=== PATIENT | female | born 2000 | race Caucasian/White ===

== ENCOUNTER 2021-01-10 16:28 | Emergency (ER) | payer SELFPAY ==
[2021-01-10 16:41] VITALS: BP 111/73; PULSE 85; RESP 18; TEMP 36.9; O2SAT 94; BMI 21.9
--- NOTE | 2021-01-10 17:08 | ED_ITS ---
HPI - Psych General: Chief Complaint: Psychiatric Symptoms Stated Complaint: SI Time Seen by Provider: 01/10/21 16:41 History of Present Illness: HPI Narrative: This patient presents to emergency department because she is concerned about how she has been feeling over the past months. She states that she feels like she can get her head together. She states that time she feels anxious at the other times she feels depressed. Occasionally she has fleeting thoughts of harming herself however she has no specific plan to do so. She currently lives with her mother and stepfather. She has plans on starting [employer] in January. She is currently taking Prozac that is been prescribed by a nurse practitioner. She initially started at 20 mg daily and is now taking 40 mg daily. She does not feel that she has had much improvement with that medication. She states she smokes marijuana from time to time to help with her anxiety. Rarely drinks alcohol and denies any other street drugs. She states she had issues with depression in her early teens but she attributes that to the middle and [employer] environment. MD complaint: feels depressed Associated symptoms: Reports depression; Deny auditory hallucinations, visual hallucinations, delusions or homicidal ideation Review of Systems Const: Denies: fever(s), chills or body aches Eyes: Denies: change in vision ENMT: Reports: nasal congestion and post nasal drip; Denies: odynophagia, hoarseness or sinus pain Card: Denies: chest pain, palpitations or irregular heart rhythm Resp: Denies: dyspnea or productive cough GI: Denies: abdominal pain, nausea or vomiting : Denies: flank pain, difficulty voiding, dysuria, vaginal bleeding or vaginal discharge Musc: Denies: neck pain, back pain or joint pain Skin/Breast: Denies: rash Neuro: Denies: headache(s), numbness in extremities or weakness in extremities Psych: Reports: anxiety and depression; Denies: paranoia, difficulty concentrating, visual hallucinations, auditory hallucinations, tactile hallucinations or homicidal ideation Physical Exam Narrative: EXAM NARRATIVE: She generally looks healthy, normal development. She makes good eye contact. Speech is of low volume but she is appropriately expressive Const: COMMON NORMALS: no acute distress and patient oriented x3 HENMT: COMMON NORMALS: normocephalic and Normal external nose present HEAD & SCALP: normocephalic FACE & SINUS: normal facial exam; sinuses not nontender NOSE: Normal external nose present MOUTH: Normal ora l and palatal mucosa present Eye: COMMON NORMALS: Equal, round and reactive pupils present and no scleral icterus PUPIL: Yes Equal, round and reactive pupils present Neck/C-Spine: COMMON NORMALS: full ROM and no lymphadenopathy Chest: CHEST: No tenderness Resp: COMMON NORMALS: normal respiratory effort, No retractions, No use of accessory muscles and clear to auscultation bilaterally AUSCULTATION: clear to auscultation bilaterally Cardio: COMMON NORMALS: regular rhythm and No murmurs present (Cardio) RHYTHM: regular rhythm GI: COMMON NORMALS: Normal to inspection, nondistended, normoactive bowel sounds present, Soft to palpation and non-tender PALPATION: Yes Soft to palpation : COMMON NORMALS: Yes no CVA tenderness BLADDER/KIDNEY EXAM: Yes no CVA tenderness Back/Pelvis: COMMON NORMALS: no CVA tenderness, thoracic and lumbar spine normal to inspection and thoraco-lumbar ROM normal Extremity: COMMON NORMALS: normal to inspection and full ROM Neuro: COMMON NORMALS: patient oriented x3, moves all extremities, no focal motor deficits, no sensory deficits noted and gait normal Psych: COMMON NORMALS: mental status grossly normal, Normal thought process present, cooperative and speech normal APPEARANCE: Yes grossly normal ATTITUDE: Yes calm SPEECH: Yes normal speech and Yes soft MOOD & AFFECT: No tearful THOUGHT PROCESS: Normal thought process present THOUGHT CONTENT: No Homicidality present, No delusions and No Hallucination(s) present ATTENTION/CONCENTRATION: Yes attention grossly intact Course Reevaluation(s): Reevaluation #1: I discussed case briefly with Dr. Hope attending psychiatrist. He was perfectly comfortable with offering her an obvious admission to ensure that she got plugged into mental health care. I discussed options with the patient and she is going to discuss with her mother regarding her input. The patient's very goal-directed and I feel at really relatively low risk for self-harm at this time. Reevaluation #2: Patient has spoken with her mother. She is decided she will go home with family and contact behavioral health in the morning. Again we had a long discussion regarding the need to follow through with contact behavioral [facility] and that if she has any pervasive or worsening symptoms of self-harm she should return to the emergency department immediately. We also advised her to continue her Prozac until she gets contact with behavioral health. She has intact decision-making capacity. She is forthright with all her discussion and at this time judged to be at low risk for self-harm. Vital Signs: Vital signs: Vital Signs Temperature 98.4 F 01/10/21 16:41 Pulse Rate 85 01/10/21 16:41 Respiratory Rate 18 01/10/21 16:41 Blood Pressure 111/73 01/10/21 16:41 Pulse Oximetry 94 01/10/21 16:41 MDM - Psych Lab Data: Labs: Lab Results 01/10/21 01/10/21 01/10/21 16:59 16:59 17:23 WBC 7.7 10^3/uL 10^3/ uL (4.5-13.0) RBC 5.07 10^6/uL 10^6 /uL (4.1-5.3) Hgb 13.9 g/dL g/dL (11.5-15.3) Hct 42.3 % % (37.0-47.0) MCV 83.4 fl fl (81-99) MCH 27.4 pg L pg (28.0-34.0) MCHC 32.9 g/dL g/dL (30.0-36.0) RDW 14.2 % % (12.1-15.1) Plt Count 347 10^3/cmm 10^3 /cmm (130-400) MPV 10.4 fL fL (7.4-10.4) Neut % (Auto) 68.1 % % Lymph % (Auto) 23.7 % % [place] % (Auto) 5.6 % % Eos % (Auto) 1.7 % % Baso % (Auto) 0.6 % % Neut # (Auto) 5.25 10^3/uL 10^3 /uL (1.8-8.0) Lymph # (Auto) 1.8 10^3/uL 10^3/ uL (1.5-6.5) [place] # (Auto) 0.4 10^3/uL 10^3/ uL (0.2-0.9) Eos # (Auto) 0.1 10^3/uL 10^3/ uL (0.0-0.8) Baso # (Auto) 0.1 10^3/uL 10^3/ uL (0.0-0.1) Nucleated RBC % (a uto) 0 % % Nucleated RBCs # 0.0 /100WBC /100W BC Sodium 138 mmol/L mmol/L (136-145) Potassium 4.0 mmol/L mmol/L (3.5-5.1) Chloride 104 mmol/L mmol/L (98-107) Carbon Dioxide 21 mmol/L L mmol/ L (22-29) Anion Gap 17.0 (5-19) BUN 6 mg/dL mg/dL (6-20) Creatinine 0.5 mg/dL mg/dL (0.5-0.9) GFR Calculation 157.3 mL/min H mL /min (90-130) Glucose 72 mg/dL mg/dL (65-115) Calculated Osmolal ity 282 mOsm/kg L mOs m/kg (285-295) Calcium 9.1 mg/dL mg/dL (8.5-10.5) Total Bilirubin 0.3 mg/dL mg/dL (0.15-1.2) AST 13 U/L U/L (0-32) ALT 8 U/L U/L (0-33) Alkaline Phosphata se 70 IU/L IU/L (35-105) Total Protein 6.5 g/dL L g/dL (6.6-8.7) Albumin 4.4 g/dL g/dL (3.5-5.2) Globulin 2.1 g/dL g/dL (1.3-4.6) HCG, Qual Negative (Negative) Salicylates < 0.3 mg/dL L mg/ dL (3-10) Urine Opiates Scre en Acetaminophen < 5.0 ug/mL L ug/ mL (10-30) Ur Barbiturates Sc reen Ur Phencyclidine S crn Ur Amphetamines Sc reen U Benzodiazepines Scrn Urine Cocaine Scre en U Marijuana (THC) Screen Ethyl Alcohol < 10 mg/dL mg/dL (0-10) 01/10/21 17:23 WBC RBC Hgb Hct MCV MCH MCHC RDW Plt Count MPV Neut % (Auto) Lymph % (Auto) [place] % (Auto) Eos % (Auto) Baso % (Auto) Neut # (Auto) Lymph # (Auto) [place] # (Auto) Eos # (Auto) Baso # (Auto) Nucleated RBC % (a uto) Nucleated RBCs # Sodium Potassium Chloride Carbon Dioxide Anion Gap BUN Creatinine GFR Calculation Glucose Calculated Osmolal ity Calcium Total Bilirubin AST ALT Alkaline Phosphata se Total Protein Albumin Globulin HCG, Qual Salicylates Urine Opiates Scre en Negative ng/mL ng /mL (Negative) Acetaminophen Ur Barbiturates Sc reen Negative ng/mL ng /mL (Negative) Ur Phencyclidine S crn Negative ng/mL ng /mL (Negative) Ur Amphetamines Sc reen Negative ng/mL ng /mL (Negative) U Benzodiazepines Scrn Negative ng/mL ng /mL (Negative) Urine Cocaine Scre en Negative ng/mL ng /mL (Negative) U Marijuana (THC) Screen Positive ng/mL H ng/mL (Negative) Ethyl Alcohol Discharge Plan Discharge Condition: Stable Discharge Orders: Discharge ED (Routine); Ordered 01/10/21 Ordered By: Deacon Felder Discharge Diet: Usual diet Discharge Activity: Resume usual activity Patient Instructions: Depression (ED) Activity Restrictions/Additional Instructions: Continue your Prozac. Call [phone] first thing in the morning to do discuss your needs with the [facility]. If your symptoms worsen you may call 911 or call Coding Level of Care Code ED Ski Patrol Officer for [facility]o Urena Exam Comprehensive
[2021-01-10 17:19] LABS: Basophils # 0.1 10^3/uL (0.0-0.1); Basophils % 0.6 %; Eosinophils # 0.1 10^3/uL (0.0-0.8); Eosinophils % 1.7 %; Hematocrit 42.3 % (37.0-47.0); Hemoglobin 13.9 g/dL (11.5-15.3); Lymphocytes # 1.8 10^3/uL (1.5-6.5); Lymphocytes % 23.7 %; Mean Corpuscular HGB Conc 32.9 g/dL (30.0-36.0); Mean Corpuscular Hemoglobin 27.4 pg (28.0-34.0); Mean Corpuscular Volume 83.4 fl (81-99); Mean Platelet Volume 10.4 fL (7.4-10.4); Monocytes # 0.4 10^3/uL (0.2-0.9); Monocytes % 5.6 %; Neutrophils # 5.25 10^3/uL (1.8-8.0); Neutrophils % 68.1 %; Nucleated Red Blood Cells % 0 %; Platelet Count 347 10^3/cmm (130-400); Red Blood Count 5.07 10^6/uL (4.1-5.3); Red Cell Distribution Width 14.2 % (12.1-15.1); White Blood Count 7.7 10^3/uL (4.5-13.0)
[2021-01-10 17:31] LABS: Alanine Aminotransferase 8 U/L (0-33); Albumin Level 4.4 g/dL (3.5-5.2); Alkaline Phosphatase 70 IU/L (35-105); Aspartate Amino Transferase 13 U/L (0-32); Blood Urea Nitrogen 6 mg/dL (6-20); Calcium 9.1 mg/dL (8.5-10.5); Carbon Dioxide 21 mmol/L (22-29); Chloride 104 mmol/L (98-107); Globulin 2.1 g/dL (1.3-4.6); Glomerular Filtration Rate 157.3 mL/min (90-130); Glucose 72 mg/dL (65-115); Osmolality Calculated 282 mOsm/kg (285-295); Sodium 138 mmol/L (136-145); Total Bilirubin 0.3 mg/dL (0.15-1.2); Total Protein 6.5 g/dL (6.6-8.7)
[2021-01-10 17:36] LABS: Acetaminophen < 5.0 ug/mL (10-30); Alcohol Level < 10 mg/dL (0-10); Salicylate < 0.3 mg/dL (3-10)
[2021-01-10 17:37] LABS: HCG Qualitative Urine. Negative (Negative)
[2021-01-10 17:44] LABS: Amphetamines Screen Urine Negative (Negative); Barbiturates Screen Urine Negative (Negative); Benzodiazepines Screen Urine Negative (Negative); Cocaine Screen Urine Negative (Negative); Opiate Screen Urine Negative (Negative); PCP Screen Urine Negative (Negative); THC Screen Urine Positive (Negative)
[2021-01-10 19:34] VITALS: RESP 16
== END 2021-01-10 19:35 | disposition home or self-care (01) ==
PROVIDERS: Emergency Provider Emergency Medicine
DX: R45.851 Suicidal ideations (principal)
CPT/HCPCS: 80053; 80306; 80307; 81025; 85025; 99283

== ENCOUNTER → 2022-01-09 10:18 | Outpatient (BNVA) | payer SELFPAY | PROVIDERS: Visit Provider Nurse Practitioner Women's Health | DX: N92.6 Irregular menstruation, unspecified (principal) | CPT/HCPCS: 81025 ==

== ENCOUNTER 2022-02-06 16:08 | Inpatient (IN) | payer SELFPAY ==
[2022-02-06 16:11] VITALS: BP 121/79; PULSE 99; RESP 16; TEMP 36.6; O2SAT 100; BMI 21.4
--- NOTE | 2022-02-06 16:34 | W.ED.PSYCHS ---
HPI - Psych General: Chief Complaint: Psychiatric Symptoms Stated Complaint: mental issues Time Seen by Provider: 02/06/22 16:34 History of Present Illness: Ms. Kinney is a 21-year-old female with history of depression, anxiety, borderline personality disorder presenting to the emergency department for worsening psychiatric symptoms. Has felt more depressed and at times as felt like she would be better off . Reports trouble with feeling like a lack of social support. Currently approximately 7 weeks . Stopped taking her duloxetine and trazodone when she found out she became as well as stopping smoking and smoking marijuana. Medically she does report some nonpainful vaginal discharge which feels like yeast infection to her. No urinary difficulty or pain with urination. Otherwise denies signs systemic illness. Course of psychiatric symptoms symptoms is worsened. No other specific changes in health, exacerbating, or alleviating factors identified. Onset (ago): week(s) Duration: getting worse Context: not taking psychiatric medications and significant life stressor Review of Systems General: Reports: 10 or more systems reviewed and unremarkable except in HPI and below PFSH ED PFSH: Medical History Borderline personality disorder Generalized anxiety disorder Moderate episode of recurrent major depressive disorder No pertinent past medical history neghx: htn,dm,thyroid,dvt/pe PCP: [facility] CON[facility]ULTING [facility]ME Psychiatric care Social phobia Surgical History History of tonsillectomy and adenoidectomy (~2010) History of wisdom tooth extraction (~2014) Family History Grandfather Diabetes paternal Hypertension Stroke maternal Denies family history of Colon cancer Ovarian cancer Hyperlipidemia Breast cancer Family history of thyroid problem Uterine cancer Social History Smoking and tobacco status: former smoker (vape - quit 01/07/22) Quit status (tobacco): has quit using tobacco Year quit tobacco: 12/2021 Second hand smoke exposure: No Smoking risk assessment/counseling performed?: No Alcohol intake: former Year of sobriety/quit date alcohol: 2021 Desire information about alcohol rehabilitation?: No Counseling given: No Desire information about substance/drug rehabilitation?: No Counseling given: No Physical Exam Const: COMMON NORMALS: alert GENERAL APPEARANCE: cooperative and well developed HENMT: COMMON NORMALS: normocephalic and atraumatic HEAD & SCALP: normocephalic and atraumatic Eye: COMMON NORMALS: conjunctivae normal CONJUNCTIVA: Yes conjunctivae normal SCLERA: sclerae normal Neck/C-Spine: COMMON NORMALS: supple GENERAL: Yes trachea midline Resp: COMMON NORMALS: clear to auscultation bilaterally EFFORT & INSPECTION: Yes able to speak in complete sentences AUSCULTATION: clear to auscultation bilaterally Cardio: COMMON NORMALS: regular rate and regular rhythm RATE: regular rate RHYTHM: regular rhythm GI: COMMON NORMALS: Soft to palpation PALPATION: Yes Soft to palpation and No Tenderness to palpation present (GI) Extremity: GENERAL: Yes normal exam except as noted and No edema Neuro: COMMON NORMALS: moves all extremities SENSORIUM/ORIENTATION: Yes alert and No Orientation impaired Psych: COMMON NORMALS: mental status grossly normal and Normal thought process present MOOD & AFFECT: Yes depressed mood THOUGHT PROCESS: Normal thought process present Course Vital Signs: Vital signs: Vital Signs Temperature 98.7 F 02/09/22 06:00 Pulse Rate 93 02/09/22 16:18 Respiratory Rate 18 02/09/22 16:18 Blood Pressure 110/67 02/09/22 16:18 Pulse Oximetry 97 02/09/22 16:18 Oxygen Delivery Me thod 02/09/22 06:00 MDM - Psych Medical Decision Making 21-year-old female presenting with worsening depression and suicidal ideation in the context of not taking psychiatric medications around discovery of . Laboratory studies reviewed. Patient to be treated for yeast infection and UTI. Based on ED evaluation at this point there is no obvious condition that would preclude the patient from inpatient management of psychiatric concerns. The results of ED evaluation were discussed with the patient including plan for admission due to requirement for level of care not available if discharged to prevent significant worsening/deterioration. Patient agreeable with plan. Discussed with psychiatry service who was agreeable to admit patient to the Neuropsych Unit. Medical Records I reviewed the patient's medical records. Lab Data I reviewed the patient's lab results. 02/06/22 17:30 02/06/22 17:30 Laboratory Results WBC 7.0 10^3/uL (4.0-10.0) 02/06/22 17:30 RBC 4.34 10^6/uL (4.1-5.3) 02/06/22 17: Hgb 12.9 g/dL (11.5-15.3) 02/06/22 17: Hct 38.6 % (37.0-47.0) 02/06/22 17: MCV 88.9 fl (81-99) 02/06/22 17: MCH 29.7 pg (28.0-34.0) 02/06/22 17: MCHC 33.4 g/dL (30.0-36.0) 02/06/22: RDW 13.0 % (12.1-15.1) 02/06/22: Plt Count 295 10^3/cmm (130-400) 02/06/22: MPV 10.0 fL (7.4-10.4) 02/06/22 17: Neut % (Auto) 72.8 % 02/06/22: Lymph % (Auto) 20.3 % 02/06/22 17:30 [place] % (Auto) 5.3 % 02/06/22 17:30 Eos % (Auto) 1.0 % 02/06/22: Baso % (Auto) 0.3 % 02/06/22: Neut # (Auto) 5.07 10^3/uL (1.8-7.7) 02/06/22: Lymph # (Auto) 1.4 10^3/uL (0.8-4.8) 02/06/22: [place] # (Auto) 0.4 10^3/uL (0.2-0.9) 02/06/22 17:30 Eos # (Auto) 0.1 10^3/uL (0.0-0.8) 02/06/22: Baso # (Auto) 0.0 10^3/uL (0.0-0.1) 02/06/22: Nucleated RBC % (auto) 0 % 02/06/22: Nucleated RBCs # 0.0 /100WBC 02/06/22 17: Sodium 134 mmol/L (136-145) L 02/06/22 17: Potassium 4.1 mmol/L (3.5-5.1) 02/06/22 17:30 Chloride 99 mmol/L (98-107) 02/06/22 17:30 Carbon Dioxide 24 mmol/L (22-29) 02/06/22 17:30 Anion Gap 15.1 (5-19) 02/06/22 17:30 BUN 7 mg/dL (6-20) 02/06/22 17:30 Creatinine 0.4 mg/dL (0.5-0.9) L 02/06/22 17:30 GFR Calculation 201.5 mL/min (90-130) H 02/06/22 17:30 Glucose 91 mg/dL (65-115) 02/06/22 17:30 Calculated Osmolality 276 mOsm/kg (285-295) L 02/06/22 17:30 Calcium 9.4 mg/dL (8.5-10.5) 02/06/22 17:30 Total Bilirubin 0.2 mg/dL (0.15-1.2) 02/06/22 17:30 AST 22 U/L (0-32) 02/06/22 17:30 ALT 20 U/L (0-33) 02/06/22 17:30 Alkaline Phosphatase 41 U/L (35-105) 02/06/22 17:30 Total Protein 6.5 g/dL (6.6-8.7) L 02/06/22 17:30 Albumin 4.2 g/dL (3.5-5.2) 02/06/22 17:30 Globulin 2.3 g/dL (1.3-4.6) 02/06/22 17:30 TSH 1.28 uIU/mL (0.27-4.20) 02/06/22 17:30 HCG, Qual Positive (Negative) H 02/06/22 16: Urine Color Yellow (Yellow) 02/06/22: Urine Appearance Sl hazy (CLEAR) A 02/06/22: Urine pH 5 (5-7) 02/06/22 16: Ur Specific [place] 1.020 (1.005-1.030) 02/06/22 16:22 Urine Protein Neg (Negative) 02/06/22: Urine Glucose (UA) Norm (Normal) 02/06/22 16:22 Urine Ketones Negative (Negative) 02/06/22 16:22 Urine Blood Neg (Negative) 02/06/22 16:22 Urine Nitrate Negative (Negative) 02/06/22 16:22 Urine Bilirubin Neg (Negative) 02/06/22 16:22 Urine Urobilinogen Norm mg/dL (Negative) 02/06/22 16:22 Ur Leukocyte Esterase 2+ (Negative) H 02/06/22 16:22 Urine RBC 0-4 /hpf (0-2) H 02/06/22 16:22 Urine WBC >100 /hpf (0-5) H 02/06/22 16:22 Ur Squamous Epith Cells 25-40 /hpf (0-5) H 02/06/22 16:22 Amorphous Sediment Not Reportable 02/06/22 16:22 Urine Bacteria 4+ /hpf (NONE) H 02/06/22 16:22 Urine Mucus 2+ /hpf 02/06/22 16:22 Salicylates < 0.3 mg/dL (3-10) L 02/06/22 17:30 Urine Opiates Screen Negative ng/mL (Negative) 02/06/22 16:22 Acetaminophen < 5.0 ug/mL (10-30) L 02/06/22 17:30 Ur Barbiturates Screen Negative ng/mL (Negative) 02/06/22 16:22 Ur Phencyclidine Scrn Negative ng/mL (Negative) 02/06/22 16:22 Ur Amphetamines Screen Negative ng/mL (Negative) 02/06/22 16:22 U Benzodiazepines Scrn Negative ng/mL (Negative) 02/06/22 16:22 Urine Cocaine Screen Negative ng/mL (Negative) 02/06/22 16:22 U Marijuana (THC) Screen Positive ng/mL (Negative) H 02/06/22 16:22 Ethyl Alcohol < 10 mg/dL (0-10) 02/06/22 17:30 Discharge Plan Discharge Patient Disposition: Admitted As Inpatient Admit Provider: Epi Hope Clinical Impression: Depression, Chronic schizophrenia, Vaginal yeast infection, UTI (urinary tract infection) Condition: Stable Discharge Diet: Regular Discharge Activity: Resume usual activity Coding Level of Care Code ED Clinical Operations Leader for [facility] Urena
[2022-02-06 16:50] LABS: HCG Qualitative Urine. Positive (Negative)
--- NOTE | 2022-02-06 17:01 | ECG_ITS ---
[facility] Test Date: 2022-02-06 Pat Name: Fe Kinney Department: Room: Gender: Female [employer] Specialist: : [id number] Requested By: Efraín Weeks Order Number: [id number] [place] MD: Belle Padilla M.D. Measurements Intervals Reader Rate: 70 P: 35 ND: 113 QRS: 83 QRSD: 85 T: 53 QT: 376 QTc: 407 Interpretive Statements SINUS RHYTHM WITH SINUS ARRHYTHMIA WITH SHORT ND INTERVAL Compared to ECG 06/10/2015 20:03:03 Short ND interval now present Electronically Signed On 02-08-2022 15:16:36 PHARMACY SALES ASSISTANT by Belle Padilla M.D. [id number]
[2022-02-06 17:31] LABS: Amphetamines Screen Urine Negative (Negative); Barbiturates Screen Urine Negative (Negative); Benzodiazepines Screen Urine Negative (Negative); Cocaine Screen Urine Negative (Negative); Opiate Screen Urine Negative (Negative); PCP Screen Urine Negative (Negative); THC Screen Urine Positive (Negative)
[2022-02-06 17:40] LABS: Basophils % 0.3 %; Eosinophils # 0.1 10^3/uL (0.0-0.8); Hematocrit 38.6 % (37.0-47.0); Hemoglobin 12.9 g/dL (11.5-15.3); Lymphocytes # 1.4 10^3/uL (0.8-4.8); Lymphocytes % 20.3 %; Mean Corpuscular HGB Conc 33.4 g/dL (30.0-36.0); Mean Corpuscular Hemoglobin 29.7 pg (28.0-34.0); Mean Corpuscular Volume 88.9 fl (81-99); Monocytes # 0.4 10^3/uL (0.2-0.9); Monocytes % 5.3 %; Neutrophils # 5.07 10^3/uL (1.8-7.7); Neutrophils % 72.8 %; Nucleated Red Blood Cells % 0 %; Platelet Count 295 10^3/cmm (130-400); Red Blood Count 4.34 10^6/uL (4.1-5.3)
[2022-02-06 17:45] LABS: Urine Appearance SL Hazy (CLEAR); Urine Color Yellow (Yellow); pH Urine 5 (5-7)
[2022-02-06 17:46] LABS: Add Urine Microscopic? YES; Bilirubin Urine Neg (Negative); Blood Urine Neg (Negative); Glucose Urine UA Norm (Normal); Ketones Urine Negative (Negative); Leukocyte Esterase Urine 2+ (Negative); Nitrate Urine Negative (Negative); Protein Urine Neg (Negative); RBC Urine 0-4 /hpf (0-2); Squamous Epithelial Cell Urine 25-40 /hpf (0-5); Urobilinogen Urine Norm (Negative); WBC Urine >100 /hpf (0-5)
[2022-02-06 17:48] VITALS: BP 120/70; PULSE 66; O2SAT 100
[2022-02-06 17:48] LABS: Add Urine Culture? Yes; Bacteria Urine 4+ /hpf; Mucus Urine 2+ /hpf
[2022-02-06 18:21] LABS: Alanine Aminotransferase 20 U/L (0-33); Albumin Level 4.2 g/dL (3.5-5.2); Alkaline Phosphatase 41 U/L (35-105); Anion Gap 15.1 (5-19); Aspartate Amino Transferase 22 U/L (0-32); Blood Urea Nitrogen 7 mg/dL (6-20); Calcium 9.4 mg/dL (8.5-10.5); Carbon Dioxide 24 mmol/L (22-29); Chloride 99 mmol/L (98-107); Globulin 2.3 g/dL (1.3-4.6); Glomerular Filtration Rate 201.5 mL/min (90-130); Glucose 91 mg/dL (65-115); Osmolality Calculated 276 mOsm/kg (285-295); Potassium 4.1 mmol/L (3.5-5.1); Sodium 134 mmol/L (136-145); Thyroid Stimulating Hormone 1.28 uIU/mL (0.27-4.20); Total Bilirubin 0.2 mg/dL (0.15-1.2); Total Protein 6.5 g/dL (6.6-8.7)
[2022-02-06 18:27] LABS: Acetaminophen < 5.0 ug/mL (10-30); Alcohol Level < 10 mg/dL (0-10); Salicylate < 0.3 mg/dL (3-10)
[2022-02-06] MEDS: acetaminophen 500 mg Tablet 1000 MG PO (19:31)
[2022-02-06 20:00] VITALS: BP 122/68; PULSE 70; RESP 18; TEMP 36.6; O2SAT 100
--- NOTE | 2022-02-06 20:16 | PC.NURSE ---
Pt laying on her side in bed, PSA at bedside, and her parents are at bedside. Pt denies any questions or needs at this time - she is awaiting Dr. acharya to speak with her and come up with a plan.
[2022-02-06 20:36] VITALS: BP 122/68; PULSE 70; RESP 18; TEMP 36.6; O2SAT 100
[2022-02-06 22:00] VITALS: BP 120/73; PULSE 74; RESP 16; TEMP 36.6; O2SAT 100
[2022-02-07 06:00] VITALS: BP 119/83; PULSE 91; RESP 16; TEMP 36.6; O2SAT 98
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
[2022-02-07] MEDS: nitrofurantoin SR (BID) 100 mg Capsule PO ×2 (09:22→17:44)
[2022-02-07] MEDS: clotrimazole 1% cream 30 gm 1 APPLIC TOPICAL (09:22)
[2022-02-07 14:00] VITALS: BP 125/83; PULSE 85; RESP 16; TEMP 36.6; O2SAT 99
[2022-02-07] MEDS: citalopram 20 mg Tablet 10 MG PO (20:35)
[2022-02-07 20:42] VITALS: BP 107/75; PULSE 84; RESP 18; TEMP 36.6; O2SAT 99
[2022-02-08] MEDS: diphenhydrAMINE 25 mg Capsule PO ×2 (05:00→21:38)
[2022-02-08 06:00] VITALS: BP 114/79; PULSE 86; RESP 16; TEMP 36.4; O2SAT 100
--- NOTE | 2022-02-08 09:24 | P.NPUPN_ITS ---
Subjective NPU Subjective: Patient was in today reporting that she is not feeling very well. He reached out to the OB to identify what medication otherwise she denied that she feltwould be recommended for nausea and a female. Otherwise she denied that she felt the symptoms were related to initiating Celexa. She stayed in bed most of the morning. Mental Status Exam MSE Comments: This is a slender tall white female in hospital scrubs with adequate grooming and eye contact. No abnormal movements except for psychomotor retardation. Cooperative with exam in mild distress. Speech was decreased rate and volume. Mood described as feeling sick , affect congruent. Thought process organized. Thought content: Patient denied current suicidal or homicidal ideation, there were no delusions reported or noted, she denied any auditory or visual hallucinations. Attention and concentration were intact and memory appeared reliable but none were formally tested. She is alert and oriented x3. Insight and judgment are fair and impulse control is limited. Vitals/I&O/Wt Last Vital Signs Temp 97.6 F 02/08/22 06:00 Pulse 86 02/08/22 06:00 Resp 16 02/08/22 06:00 BP 114/79 02/08/22 06:00 Pulse Ox 100 02/08/22 06:00 O2 Del Method 02/07/22 14:00 Weight last 48 hrs Weight 62.051 kg Data NPU : 02/06/22 17:30 02/06/22 17:30 Micro: Microbiology 02/06/22 16:22 Urine Culture - Final Urine,Clean Catch Microbiology 02/06/22 16:22 Urine,Clean Catch Urine Culture - Final A&P Assessment and plan (1) Borderline personality disorder: (2) Moderate episode of recurrent major depressive disorder: (3) Generalized anxiety disorder: (4) Cannabis use disorder, moderate, dependence: (5) Vaginal yeast infection: (6) UTI (urinary tract infection): (7) Social phobia: Plan This is a 21-year-old white female with a long history of mental health and addiction issues as well as a history of trauma and treatment going back to her childhood who presents and off of her medication seeking advice on whether to restart medication and how to proceed with her mental health challenges during this . 1. Initiate Celexa 10 mg p.o. every morning. 2. Continue every 15 minute checks for safety. 3. Encourage individual, group and milieu therapy. 4. Assist in understanding how treatment changes during and support her with additional resources during this challenging time. 5. Identify appropriate medication for nausea in . Involuntary Hold Information 96 Hour Hold: 96 Hour Involuntary Admission: No Attestations NPU Medical Necessity Statement*: Inpatient hospitalization is medically necessary and the clinically appropriate intervention at this time. We will monitor/initiate medications and make changes as indicated. Likely length of stay 2-4 days. Coding Level of Care Code Acute Polyethylene Bag Machine Operator for [facility] Fwd Diagnoses Borderline personality disorder F60.3 Moderate episode of recurrent major depressive disorder F33.1 Generalized anxiety disorder F41.1 Cannabis use disorder, moderate, dependence F12.20 Vaginal yeast infection B37.31 UTI (urinary tract infection) N39.0 Social phobia F40.10
[2022-02-08] MEDS: citalopram 20 mg Tablet 10 MG PO (09:27)
[2022-02-08] MEDS: prenatal vitamin Capsule 1 CAP PO (09:27)
[2022-02-08] MEDS: clotrimazole 1% cream 30 gm 1 APPLIC TOPICAL (09:53)
[2022-02-08] MEDS: nitrofurantoin SR (BID) 100 mg Capsule PO ×2 (09:53→18:26)
[2022-02-08] MEDS: pyridoxine 50 mg Tablet 25 MG PO (11:02)
[2022-02-08 14:00] VITALS: BP 116/74; PULSE 72; RESP 18; TEMP 36.3; O2SAT 100
[2022-02-08] MEDS: ondansetron 4 MG Tablet 2 MG PO (14:45)
[2022-02-08 20:31] VITALS: BP 116/73; PULSE 74; RESP 18; TEMP 36.8; O2SAT 99
[2022-02-09 06:00] VITALS: BP 106/70; PULSE 91; RESP 18; TEMP 37.1; O2SAT 98; BMI 21.2
[2022-02-09] MEDS: prenatal vitamin Capsule 1 CAP PO (08:43)
[2022-02-09] MEDS: nitrofurantoin SR (BID) 100 mg Capsule PO (08:44)
[2022-02-09] MEDS: pyridoxine 50 mg Tablet 25 MG PO (08:44)
[2022-02-09] MEDS: citalopram 20 mg Tablet 10 MG PO (08:44)
--- NOTE | 2022-02-09 08:50 | PC.NURSE ---
shift assessment denies SI/HI/AVH currently...decreased energy, had to be woken up for assessment. pt refused breakfast tray at this time, asked for apple juice and yogurt which was provided by staff. when asked if she experiences any shortness of breath, pt stated yes sometimes but denies currently...asked if she uses inhalers at home, pt denied. will cont to monitor
--- NOTE | 2022-02-09 12:05 | PC.NURSE ---
contacted nurse from OB, asked for assistance in checking FHT...OB nurse Ponce, RN said they can't check for FHT with a doppler until patient is at least 12 weeks. right now patient is 7 weeks . will relay info to Dr. Hope
[2022-02-09 14:00] VITALS: BP 110/67; PULSE 93; RESP 18; O2SAT 97
[2022-02-09 16:18] VITALS: BP 110/67; PULSE 93; RESP 18; O2SAT 97
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
== END 2022-02-09 17:13 | disposition home or self-care (01) | DRG 832 ==
LOC: ER 19:47 → NP 20:09
PROVIDERS: Admitting Provider Psychiatry & Neurology Psychiatry; Emergency Provider Emergency Medicine; Visit Provider Psychiatry & Neurology Psychiatry
DX: O99.341 Other mental disorders complicating pregnancy, first trimester (principal); F33.1 Major depressive disorder, recurrent, moderate; N39.0 Urinary tract infection, site not specified; O23.41 Unspecified infection of urinary tract in pregnancy, first trimester; Z3A.01 Less than 8 weeks gestation of pregnancy; F40.11 Social phobia, generalized; F60.3 Borderline personality disorder; Z87.891 Personal history of nicotine dependence; Z91.14 Patient's other noncompliance with medication regimen
CPT/HCPCS: 36415; 80053; 80306; 80307; 81001; 81025; 84443; 85025; 87086; 87210; 93005; 97150; 97165; 99285; Q0162

== ENCOUNTER 2022-03-03 12:40 | Outpatient (CLI) | payer MEDICAID, SELFPAY ==
[2022-03-03 13:52] LABS: Basophils % 0.5 %; Eosinophils % 0.7 %; Hematocrit 43.6 % (37.0-47.0); Hemoglobin 13.3 g/dL (11.5-15.3); Lymphocytes # 1.4 10^3/uL (0.8-4.8); Lymphocytes % 23.5 %; Mean Corpuscular HGB Conc 30.5 g/dL (30.0-36.0); Mean Corpuscular Hemoglobin 30.2 pg (28.0-34.0); Mean Corpuscular Volume 99.1 fl (81-99); Mean Platelet Volume 10.4 fL (7.4-10.4); Monocytes # 0.3 10^3/uL (0.2-0.9); Monocytes % 4.6 %; Neutrophils # 4.17 10^3/uL (1.8-7.7); Neutrophils % 70.4 %; Nucleated Red Blood Cells % 0 %; Platelet Count 286 10^3/cmm (130-400); Red Cell Distribution Width 13.2 % (12.1-15.1); White Blood Count 5.9 10^3/uL (4.0-10.0)
[2022-03-03 14:24] LABS: HIV 1 & 2 Antigen Non-Reactive (Non-Reactiv)
[2022-03-03 14:25] LABS: HIV 1 & 2 Antibody Non-Reactive (Non-Reactiv)
[2022-03-03 14:27] LABS: Rubella IgG 19.4 IU/mL (0.0-10.0); Thyroid Stimulating Hormone 1.37 uIU/mL (0.27-4.20)
[2022-03-03 14:29] LABS: Rapid Plasma Reagin Syphilis Nonreactive (Nonreactive)
[2022-03-03 14:32] LABS: Hepatitis B Core AB, Total Non-Reactive (Nonreactive); Hepatitis B Surface AB 7.5 (11.5-1000); Hepatitis B Surface Antigen Non-Reactive (Nonreactive); Hepatitis C Virus Antibody Non-Reactive (Nonreactive)
== END 2022-03-03 12:41 | disposition home or self-care (01) ==
LOC: LAB 12:47
PROVIDERS: PCP Registered Nurse; Visit Provider Obstetrics & Gynecology
DX: Z34.90 Encounter for supervision of normal pregnancy, unspecified, unspecified trimester (principal)
CPT/HCPCS: 36415; 80307; 84315; 84443; 85025; 86592; 86705; 86706; 86762; 86803; 87086; 87340; 87806; 88175

== ENCOUNTER → 2022-03-14 09:40 | Outpatient (BNVA) | payer MEDICAID, SELFPAY | PROVIDERS: PCP Registered Nurse; Visit Provider Obstetrics & Gynecology | DX: Z34.00 Encounter for supervision of normal first pregnancy, unspecified trimester (principal); Z34.90 Encounter for supervision of normal pregnancy, unspecified, unspecified trimester; B37.31 Acute candidiasis of vulva and vagina | CPT/HCPCS: 87491; 87591; 87661 ==

== ENCOUNTER → 2022-04-08 12:20 | Outpatient (BNVA) | payer MEDICAID, SELFPAY | PROVIDERS: PCP Registered Nurse; Visit Provider Nurse Practitioner Women's Health | DX: Z34.00 Encounter for supervision of normal first pregnancy, unspecified trimester (principal); B37.31 Acute candidiasis of vulva and vagina | CPT/HCPCS: 81000; 82105; 82728; 83540; 85025; 86850; 86900 ==

== ENCOUNTER → 2022-05-12 09:43 | Outpatient (BNVA) | payer MEDICAID, SELFPAY | PROVIDERS: PCP Registered Nurse; Visit Provider Obstetrics & Gynecology | DX: Z34.00 Encounter for supervision of normal first pregnancy, unspecified trimester (principal); R82.90 Unspecified abnormal findings in urine | CPT/HCPCS: 81000; 87086 ==

== ENCOUNTER → 2022-07-02 10:40 | Outpatient (BNVA) | payer MEDICAID, SELFPAY | PROVIDERS: PCP Registered Nurse; Visit Provider Obstetrics & Gynecology | DX: Z34.00 Encounter for supervision of normal first pregnancy, unspecified trimester (principal) | CPT/HCPCS: 84315; 87086 ==

== ENCOUNTER 2022-07-03 10:49 | Outpatient (CLI) | payer MEDICAID, SELFPAY ==
[2022-07-03 12:22] LABS: Basophils % 0.4 %; Eosinophils # 0.1 10^3/uL (0.0-0.8); Eosinophils % 1.2 %; Hemoglobin 12.1 g/dL (11.5-15.3); Lymphocytes # 1.3 10^3/uL (0.8-4.8); Lymphocytes % 18.9 %; Mean Corpuscular HGB Conc 32.7 g/dL (30.0-36.0); Mean Corpuscular Hemoglobin 29.7 pg (28.0-34.0); Mean Corpuscular Volume 90.7 fl (81-99); Mean Platelet Volume 9.7 fL (7.4-10.4); Monocytes # 0.4 10^3/uL (0.2-0.9); Monocytes % 5.8 %; Neutrophils # 5.09 10^3/uL (1.8-7.7); Neutrophils % 73.3 %; Nucleated Red Blood Cells % 0 %; Platelet Count 227 10^3/cmm (130-400); Red Blood Count 4.08 10^6/uL (4.1-5.3); Red Cell Distribution Width 13.7 % (12.1-15.1); White Blood Count 6.9 10^3/uL (4.0-10.0)
[2022-07-03 12:44] LABS: Glucose Tolerance 1 Hour Gest 71 mg/dL
== END 2022-07-03 10:50 | disposition home or self-care (01) ==
LOC: LAB 10:53
PROVIDERS: PCP Registered Nurse; Visit Provider Obstetrics & Gynecology
DX: Z34.00 Encounter for supervision of normal first pregnancy, unspecified trimester (principal)
CPT/HCPCS: 36415; 82950; 85025

== ENCOUNTER 2022-07-07 23:20 | Outpatient (CLI) | payer MEDICAID, SELFPAY ==
[2022-07-07 23:34] VITALS: BMI 26.2
[2022-07-07 23:35] VITALS: RESP 15
[2022-07-07 23:40] VITALS: BP 115/76; PULSE 86
[2022-07-07 23:54] VITALS: BP 112/66; PULSE 83
[2022-07-08] VITALS (7 sets, daily range): BP systolic 107–114; BP diastolic 62–69; PULSE 67–86; RESP 18; TEMP 36.1
[2022-07-08 00:06] LABS: Nitrazine Paper, PH Negative
[2022-07-08 00:06] LABS: Amphetamines Screen Urine Negative (Negative); Barbiturates Screen Urine Negative (Negative); Benzodiazepines Screen Urine Negative (Negative); Cocaine Screen Urine Negative (Negative); Opiate Screen Urine Negative (Negative); PCP Screen Urine Negative (Negative); THC Screen Urine Negative (Negative)
--- NOTE | 2022-07-08 00:06 | USR_ITS ---
PROCEDURE INFORMATION: Exam: US Biophysical Profile Without Non-Stress Test Exam date and time: 07/08/2022 12:37 AM Age: 22 years old Clinical indication: ; Patient HX: Patient perceived decreased movement today TECHNIQUE: Imaging protocol: US biophysical profile without non-stress testing. COMPARISON: US OB >= 14 weeks fetus [facility] 05/06/2022 2:25 PM FINDINGS: heart rate: 144 bpm presentation: Breech Placenta: Posterior grade 1 placenta without previa. Amniotic fluid: Amniotic fluid volume is normal. Amniotic fluid index: ERIKA is 16.6 cm. BIOPHYSICAL PROFILE: breathing movement (BPP): 2/2 body movement (BPP): 2/2 tone (BPP): 2/2 Amniotic fluid (BPP): 2/2 Biophysical profile score (BPP): 8/8 MATERNAL ANATOMY: Cervix: Cervical length measures 3.2 cm. US/US OB BPP wo NST [id number] IMPRESSION: 1. Single live intrauterine gestation. 2. Biophysical profile score 8/8.
== END 2022-07-08 02:12 | disposition home or self-care (01) ==
LOC: OPOB 23:29 → OBGYN 23:30
PROVIDERS: PCP Registered Nurse; Visit Provider Obstetrics & Gynecology
DX: O36.8190 Decreased fetal movements, unspecified trimester, not applicable or unspecified (principal); Z3A.00 Weeks of gestation of pregnancy not specified
CPT/HCPCS: 59025; 76819; 80306; 83986; 99211

== ENCOUNTER → 2022-10-28 14:32 | Outpatient (BNVA) | payer SELFPAY | PROVIDERS: PCP Registered Nurse; Visit Provider Psychiatry & Neurology Psychiatry | DX: F33.1 Major depressive disorder, recurrent, moderate (principal); F40.10 Social phobia, unspecified; F60.3 Borderline personality disorder | CPT/HCPCS: 80061; 83036 ==

== ENCOUNTER → 2023-06-09 12:42 | Outpatient (BNVA) | payer OTHER, SELFPAY ==
[2022-11-14 13:47] VITALS: BP 116/77; BMI 26.0
== END ==
PROVIDERS: PCP Registered Nurse; Visit Provider Nurse Practitioner Psychiatric/Mental Health
DX: Z79.899 Other long term (current) drug therapy (principal)
CPT/HCPCS: 80053; 80061; 83036

== ENCOUNTER → 2024-04-05 14:25 | Outpatient (BNVA) | payer MEDICAID, SELFPAY ==
[2023-10-05 15:55] VITALS: BP 115/60; BMI 25.7
== END ==
PROVIDERS: PCP Registered Nurse; Visit Provider Nurse Practitioner Women's Health
DX: N92.6 Irregular menstruation, unspecified (principal); N91.2 Amenorrhea, unspecified
CPT/HCPCS: 81025; 84702

== ENCOUNTER → 2024-04-12 14:07 | Outpatient (BNVA) | payer MEDICAID, SELFPAY ==
[2023-10-05 15:55] VITALS: BP 115/60; BMI 25.7
== END ==
PROVIDERS: PCP Registered Nurse; Visit Provider Nurse Practitioner Women's Health
DX: O26.891 Other specified pregnancy related conditions, first trimester (principal); Z3A.01 Less than 8 weeks gestation of pregnancy
CPT/HCPCS: 76817

== ENCOUNTER → 2024-05-10 09:51 | Outpatient (BNVA) | payer OTHER, SELFPAY ==
[2023-10-05 15:55] VITALS: BP 115/60; BMI 25.7
== END ==
PROVIDERS: PCP Registered Nurse; Visit Provider Nurse Practitioner Women's Health
DX: Z34.90 Encounter for supervision of normal pregnancy, unspecified, unspecified trimester (principal); Z34.80 Encounter for supervision of other normal pregnancy, unspecified trimester
CPT/HCPCS: 80307; 84315; 85025; 86592; 86762; 86803; 86850; 86900; 87086; 87340; 87806

== ENCOUNTER → 2024-05-26 10:30 | Outpatient (BNVA) | payer MEDICAID, SELFPAY ==
[2023-10-05 15:55] VITALS: BP 115/60; BMI 25.7
== END ==
PROVIDERS: PCP Registered Nurse; Visit Provider Obstetrics & Gynecology
DX: Z34.80 Encounter for supervision of other normal pregnancy, unspecified trimester (principal)
CPT/HCPCS: 81000; 87491; 87591; 87661

== ENCOUNTER → 2024-06-20 10:36 | Outpatient (BNVA) | payer MEDICAID, SELFPAY ==
[2023-10-05 15:55] VITALS: BP 115/60; BMI 25.7
== END ==
PROVIDERS: PCP Registered Nurse; Visit Provider Nurse Practitioner Women's Health
DX: Z34.80 Encounter for supervision of other normal pregnancy, unspecified trimester (principal)
CPT/HCPCS: 81000; 82105; 87491; 87591; 87661

== ENCOUNTER 2024-07-04 18:19 | Emergency (ER) | payer MEDICAID, SELFPAY ==
[2023-10-05 15:55] VITALS: BP 115/60; BMI 25.7
[2024-07-04 18:25] VITALS: BP 127/79; PULSE 97; RESP 14; TEMP 37; O2SAT 98
[2024-07-04 18:59] LABS: Basophils % 0.4 %; Eosinophils # 0.1 10^3/uL (0.0-0.8); Eosinophils % 1.1 %; Hematocrit 41.9 % (36-47); Lymphocytes # 1.6 10^3/uL (0.8-4.8); Lymphocytes % 20.7 %; Mean Corpuscular HGB Conc 31.7 g/dL (30-55); Mean Corpuscular Hemoglobin 28.3 pg (27-33); Mean Corpuscular Volume 89.1 fl (85-98); Mean Platelet Volume 10.1 fL (7.4-10.4); Monocytes # 0.5 10^3/uL (0.2-0.9); Monocytes % 5.7 %; Neutrophils # 5.65 10^3/uL (1.8-7.7); Neutrophils % 71.8 %; Nucleated Red Blood Cells % 0 %; Platelet Count 282 10^3/cmm (157-399); Red Cell Distribution Width 13.9 % (12.1-15.1); White Blood Count 7.87 10^3/uL (3.29-11.43)
[2024-07-04 19:22] LABS: Alanine Aminotransferase 10 U/L (0-33); Alkaline Phosphatase 60 U/L (35-105); Anion Gap 14.9 (5-19); Aspartate Amino Transferase 11 U/L (0-32); Blood Urea Nitrogen 7 mg/dL (6-20); Calcium 9.2 mg/dL (8.5-10.5); Carbon Dioxide 21 mmol/L (22-29); Chloride 107 mmol/L (98-107); Creatinine Clr Calc Pharmacy 235.2418; Glomerular Filtration Rate 196.1 mL/min (90-130); Glucose 64 mg/dL (65-115); Lipase 31 U/L (13-60); Osmolality Calculated 284 mOsm/kg (285-295); Potassium 3.9 mmol/L (3.5-5.1); Sodium 139 mmol/L (136-145); Total Bilirubin 0.2 mg/dL (0.15-1.2)
--- NOTE | 2024-07-04 19:28 | USR_ITS ---
PROCEDURE INFORMATION: Exam: US After First Trimester, Transabdominal Exam date and time: 07/04/2024 7:35 PM Age: 24 years old Clinical indication: complicated by abdominal or pelvic pain; Other: Lower back pain; Gestational age or lmp: 18 w 0d; ; G2-p1-a0-l1; Additional info: Llq pain LABS AND CLINICAL REPORTS: Last menstrual period start date: 02/29/2024 Gestational age (Established): 18 w 0 d Estimated due date (Established): 12/05/2024 TECHNIQUE: Imaging protocol: Real-time transabdominal obstetrical ultrasound of the maternal pelvis and a second or third trimester with image documentation. COMPARISON: US OB transvaginal [id number] 04/12/2024 2:11 PM FINDINGS: Gestation: Single live intrauterine gestation. heart rate: 148 bpm presentation and position: Breech Placenta: Anterior without evidence of placenta previa. Grade 0. Amniotic fluid (Qualitative): Amniotic fluid volume is normal. Amniotic fluid index: ERIKA is 15.35 cm. ANATOMY: midline falx: midline falx is normal. cerebellum: cerebellum is normal. lateral ventricles: lateral ventricles are normal. cisterna magna: cisterna magna is normal. choroid plexus: choroid plexus is normal. face: upper lip and nose are mostly obscured and not clearly visualized. heart four-chamber view, heart size and position: obscured by position. heart right ventricular outflow tract: Obscured by position . heart left ventricular outflow tract: Obscured by position. kidneys: kidneys are normal. stomach: stomach is normal. urinary bladder: bladder is normal. spine: No visualized abnormalities of spine. Umbilical cord and insertion: umbilical cord insertion site into the abdomen is normal. 3-vessel umbilical cord is seen. upper limbs: No visualized abnormalities of arms/hands. lower limbs: legs and feet: No visualized abnormalities of legs/feet. external genitalia: No visualized abnormalities. BIOMETRY: Gestational age (AUA): 12 w 1 d Estimated due date (AUA): 12/04/2024 Estimated weight: 230.32 g. EFW by AC, BPD, FL, HC, Hadlock 1985 Biparietal diameter (BPD): 3.86 cm. EGA (BPD) is 17 w 5 d. 38.9 % percentile Head circumference (HC): 15.68 cm. EGA (HC) is 18 w 4 d. 71.5 % percentile Abdominal circumference (AC): 12.49 cm. EGA (AC) is 18 w 1 d. 51.3 % percentile Femur length (FL): 2.73 cm. EGA (FL) is 18 w 2 d. 57.3 % percentile HC/AC: 1.26. (Normal range: 1.08 - 1.27) FL/HC: 17.41. (Normal range: 15.84 - 18.04) FL/BPD: 70.73 FL/AC: 21.86 MATERNAL: Uterus: Unremarkable. Cervix: Cervical length measures 5.1 cm. Right ovary/adnexa: Obscured by lack of adequate acoustic window. Left ovary/adnexa: Obscured by lack of adequate acoustic window. Intraperitoneal space: No intraperitoneal free fluid. US/US OB >= 14 weeks fetus [id number] IMPRESSION: No acute abnormalities. survey as described above.
--- NOTE | 2024-07-04 19:34 | ED_ITS ---
HPI - Back Pain/Injury 2 General: Chief Complaint: Back Pain/Injury Stated Complaint: 18 weeks preg, pain in back and abd Time Seen by Provider: 07/04/24 18:38 Source: patient Mode of arrival: ambulatory Limitations: no limitations History of Present Illness: Patient is a 24-year-old female, A0, who presents the emergency department complaining of sudden onset left lower back pain beginning a few hours prior to coming in. She is currently 18 weeks , OB is Dr. Cherry. States that she was laying down when the pain suddenly started to her left lower back and noticed that it radiated towards her left lower quadrant region. Only thing reported to alleviate this pain is holding pressure on these areas, she does not report any other specific alleviating or exacerbating factors. No other associated symptoms are reported, which includes no vaginal bleeding or discharge, urinary symptoms, fevers, syncopal episodes or seizures, chest pain or shortness of breath, or changes in bowel habits. States that her first was uncomplicated, and to date her current has been without complications. She has been taking Tylenol for the pain but states this does not touch it. At this time her vitals are unremarkable. She notes the pain currently is a 6/10 but prior to examination was a 9/10 and states that it has been intermittent throughout the day. MD elicited complaint: back pain Onset (ago): hour(s) Timing: intermittent Severity: severe Pain scale (0-10): 9 Radiation: abdomen Exacerbating factors: none Relieving factors: other (Holding pressure to painful areas) Context: other (Currently ) Associated symptoms: Reports abdominal pain; Deny chills, dysuria, fever(s), nausea, urinary urgency or vomiting Treatments prior to arrival: acetaminophen Related Data Home Medications ?Medication ?Instructions ?Recorded ?Confirmed docosahexaenoic acid 200 mg mg PO DAILY 05/10/2406/20 capsule ( DHA) Allergies Allergy/AdvReac Type Severity Reaction Status Date / Time No Known Allergies Allergy Verified 07/04/24 18:31 Review of Systems 2 General: Reports: 10 or more systems reviewed and unremarkable except in HPI and below Const: Denies: fever(s), chills, change in appetite, change in weight or diaphoresis ENMT: Denies: throat pain or hoarseness Card: Denies: chest pain, palpitations or lightheadedness Resp: Denies: dyspnea, productive cough or wheezing GI: Reports: abdominal pain and other (); Denies: nausea, vomiting, diarrhea, constipation, bloating, change in stool character or hematochezia : Denies: flank pain, difficulty voiding, dysuria, urinary frequency, urinary urgency, vaginal bleeding or vaginal discharge Musc: Reports: back pain; Denies: neck pain Skin/Breast: Denies: rash or new lesions Neuro: Denies: headache(s) or dizziness PFSH ED 2 PFSH: Medical History Generalized anxiety disorder with panic attacks Nicotine dependence due to vaping tobacco product quit at confirmation of 2024 Chronic post-traumatic stress disorder Autism spectrum disorder Without accompanying intellectual impairment No pertinent past medical history neghx: htn,dm,thyroid,dvt/pe PCP:Barb Chan Moderate episode of recurrent major depressive disorder Psychiatric care Surgical History H/O hemorrhoidectomy (~07/2023) Dr Paris History of tonsillectomy and adenoidectomy (~2010) History of wisdom tooth extraction (~2014) Family History Grandfather Diabetes paternal Hypertension Stroke maternal Denies family history of Colon cancer Ovarian cancer Hyperlipidemia Breast cancer Family history of thyroid problem Uterine cancer Social History Smoking and tobacco/nicotine status: former use of tobacco/nicotine Quit status (tobacco/nicotine): not considering quitting Second hand smoke exposure: No Alcohol intake: current Alcohol intake frequency: holidays/special occasions only Substance/Drug Use: current Substance/Drug use frequency: few times a week Other substance/drug use details: about once per week Adopted: No Caregiver/support person: Yes Lives independently: No Household members: family Housing: House Marital status: Single Number of children: 1 Highest education level completed: High School Graduate service: No Current occupational status: unemployed Current occupational exposures/hazards: No Pets and animals: Yes Pets & animals: cat(s) Leisure activites: music, fishing and other Leisure activities details: spend time with baby, go outside Sexually active: Yes Do you think of yourself as: Straight/Heterosexual Current gender identity: Female Dayanara/Taoist: None Special dayanara needs: No Agree to transfusion: Yes Female Reproductive History: Para: 1 Physical Exam 2 Const: COMMON NORMALS: no acute distress, average body habitus, patient oriented x3, no limitations, healthy appearing, alert and well nourished G ENERAL APPEARANCE: cooperative and comfortable ORIENTATION/CONSCIOUSNESS: Yes awake HENMT: COMMON NORMALS: normocephalic, atraumatic, hearing grossly normal bilaterally, external ears normal, Normal external nose present, Normal nasal mucous membranes and turbinates present and moist oral mucous membranes HEAD & SCALP: normocephalic and atraumatic NOSE: Normal external nose present and Normal nasal mucous membranes and turbinates present EXTERNAL EAR: Yes external ears normal Eye: COMMON NORMALS: Equal, round and reactive pupils present, EOMs intact bilaterally, conjunctivae normal and normal visual og by confrontation C ONJUNCTIVA: Yes conjunctivae normal PUPIL: Yes Equal, round and reactive pupils present Neck/C-Spine: COMMON NORMALS: full ROM, supple, no meningeal signs and no JVD Resp: COMMON NORMALS: normal respiratory effort, No retractions, No use of accessory muscles and clear to auscultation bilaterally AUSCULTATION: clear to auscultation bilaterally, no crackles, no rales, no rhonchi and no wheezes Cardio: COMMON NORMALS: no JVD, regular rate, regular rhythm, S1 normal heart sound present, S2 normal heart sound present, No gallops present (Cardio), No clicks present (Cardio), No murmurs present (Cardio), No rub (Cardio) and Peripheral pulses 2+ throughout RATE: regular rate RHYTHM: regular rhythm HEART SOUNDS: S1 normal heart sound present and S2 normal heart sound present PERIPHERAL PULSES: Peripheral pulses 2+ throughout GI: COMMON NORMALS: Normal to inspection, nondistended, normoactive bowel sounds present, No hepatosplenomegaly present and no masses INSPECTION: Yes gravid abdomen AUSCULTATION: Yes normoactive bowel sounds PALPATION: Yes Tenderness to palpation present (GI) Details: LLQ, No Guarding due to palpation present (GI), No Rigid due to palpation and Yes No hepatosplenomegaly present RECTAL EXAM: deferred : COMMON NORMALS: Yes no CVA tenderness BLADDER/KIDNEY EXAM: Yes no CVA tenderness Back/Pelvis: COMMON NORMALS: no CVA tenderness OTHER: Left lower back tenderness to palpation Extremity: COMMON NORMALS: normal to inspection and full ROM Neuro: COMMON NORMALS: patient oriented x3, moves all extremities, no focal motor deficits and no sensory deficits noted SENSORIUM/ORIENTATION: Yes alert MENINGEAL SIGNS: Yes no meningeal signs Psych: COMMON NORMALS: mental status grossly normal, cooperative and speech normal SPEECH: Yes normal speech Skin: COMMON NORMALS: no rashes or lesions noted GENERAL SKIN EXAM: no rashes or lesions noted Course 2 Vital Signs: Vital signs: Vital Signs Temperature 98.6 F 07/04/24 18:25 Pulse Rate 68 07/04/24 22:10 Respiratory Rate 16 07/04/24 22:10 Blood Pressure 117/75 07/04/24 22:10 Pulse Oximetry 99 07/04/24 22:10 Oxygen Delivery Me thod Room Air 07/04/24 21:00 MDM - Back Pain/Injury Medical Decision Making Patient 18 weeks , presenting with left lower back and left lower quadrant abdominal pain. Easily reproducible tenderness to palpation on exam, she had no other associated symptoms to report. Has tried heat and Tylenol, not much relief. Vitals have been unremarkable throughout ED stay, normal history up to this point. Her lab work today was unremarkable, normal urine with no signs of infection. ultrasound showing no acute abnormalities with appropriate survey. I suspect musculoskeletal pain due to her normal workup, however encouraged her to call her OB tomorrow to schedule follow-up appointment and to discuss her ED visit. She is comfortable with this plan and we discussed return precautions. Labs 07/04/24 18:41 07/04/24 18:41 Radiology Impressions Ultrasound 07/04/24 19:28 IMPRESSION: No acute abnormalities. survey as described above. Laboratory Results WBC 7.87 10^3/uL (3.29-11.43) 07/04/24 18:41 RBC 4.70 10^6/uL (3.85-5.65) 07/04/24 18:41 Hgb 13.30 g/dL (11.27-16.99) 07/04/24 18:41 Hct 41.9 % (36-47) 07/04/24 18:41 MCV 89.1 fl (85-98) 07/04/24 18:41 MCH 28.3 pg (27-33) 07/04/24 18:41 MCHC 31.7 g/dL (30-55) 07/04/24 18:41 RDW 13.9 % (12.1-15.1) 07/04/24 18:41 Plt Count 282 10^3/cmm (157-399) 07/04/24 18:41 MPV 10.1 fL (7.4-10.4) 07/04/24 18:41 Neut % (Auto) 71.8 % 07/04/24 18:41 Lymph % (Auto) 20.7 % 07/04/24 18:41 [place] % (Auto) 5.7 % 07/04/24 18:41 Eos % (Auto) 1.1 % 07/04/24 18:41 Baso % (Auto) 0.4 % 07/04/24 18:41 Neut # (Auto) 5.65 10^3/uL (1.8-7.7) 07/04/24 18:41 Lymph # (Auto) 1.6 10^3/uL (0.8-4.8) 07/04/24 18:41 [place] # (Auto) 0.5 10^3/uL (0.2-0.9) 07/04/24 18:41 Eos # (Auto) 0.1 10^3/uL (0.0-0.8) 07/04/24 18:41 Baso # (Auto) 0.0 10^3/uL (0.0-0.1) 07/04/24 18:41 Nucleated RBC % (auto) 0 % 07/04/24 18: Nucleated RBCs # 0.0 /100WBC 07/04/24 18:41 Sodium 139 mmol/L (136-145) 07/04/24 18:41 Potassium 3.9 mmol/L (3.5-5.1) 07/04/24 18:41 Chloride 107 mmol/L (98-107) 07/04/24 18:41 Carbon Dioxide 21 mmol/L (22-29) L 07/04/24 18:41 Anion Gap 14.9 (5-19) 07/04/24 18:41 BUN 7 mg/dL (6-20) 07/04/24 18:41 Creatinine 0.4 mg/dL (0.5-0.9) L 07/04/24 18:41 GFR Calculation 196.1 mL/min (90-130) H 07/04/24 18:41 Glucose 64 mg/dL (65-115) L 07/04/24 18:41 Calculated Osmolality 284 mOsm/kg (285-295) L 07/04/24 18:41 Calcium 9.2 mg/dL (8.5-10.5) 07/04/24 18:41 Total Bilirubin 0.2 mg/dL (0.15-1.2) 07/04/24 18:41 AST 11 U/L (0-32) 07/04/24 18:41 ALT 10 U/L (0-33) 07/04/24 18:41 Alkaline Phosphatase 60 U/L (35-105) 07/04/24 18:41 Total Protein 7.0 g/dL (6.6-8.7) 07/04/24 18:41 Albumin 4.0 g/dL (3.5-5.2) 07/04/24 18:41 Globulin 3.0 g/dL (1.3-4.6) 07/04/24 18:41 Lipase 31 U/L (13-60) 07/04/24 18:41 Urine Color Yellow (Yellow) 07/04/24 20:48 Urine Appearance Clear (CLEAR) 07/04/24 20:48 Urine pH 6.5 (5-7) 07/04/24 20:48 Ur Specific [place] 1.020 (1.005-1.030) 07/04/24 20:48 Urine Protein Neg (Negative) 07/04/24 20:48 Urine Glucose (UA) Norm (Normal) 07/04/24 20:48 Urine Ketones Negative (Negative) 07/04/24 20:48 Urine Blood Neg (Negative) 07/04/24 20:48 Urine Nitrate Negative (Negative) 07/04/24 20:48 Urine Bilirubin Neg (Negative) 07/04/24 20:48 Urine Urobilinogen Norm mg/dL (Negative) 07/04/24 20:48 Ur Leukocyte Esterase Negative (Negative) 07/04/24 20:48 Amorphous Sediment Not Reportable 07/04/24 20:48 All radiology interpretation(s) finalized by discharge Discharge Plan Discharge Patient Disposition: Home Clinical Impression: Abdominal pain during Qualifiers: Trimester: second trimester Qualified Code(s): O26.892 - Other specified related conditions, second trimester Condition: Stable Prescriptions: No Action DHA 200 mg capsule PO DAILY Discharge Orders: Discharge ED (Routine); Ordered 07/04/24 Ordered By: Walter Bustos Referrals: Barb Chan [Primary Care Provider] - Patient Instructions: Abdominal Pain in (ED) Activity Restrictions/Additional Instructions: Please call your OB in the morning to schedule follow-up appointment and to discuss her ED visit. Continue taking Tylenol at home, apply heat to the areas for relief. If you start to develop any fevers, vaginal bleeding, nausea/vomiting, or any other concerning symptoms that we discussed please return to the ED immediately. Print Language: Icelandic Coding Level of Care Code ED Bilingual Speech Language Pathologist for Papo Urena
[2024-07-04 20:20] VITALS: BP 114/66; PULSE 74; RESP 16; O2SAT 100
[2024-07-04 20:53] LABS: Add Urine Microscopic? NO
[2024-07-04 20:55] LABS: Bilirubin Urine Neg (Negative); Blood Urine Neg (Negative); Charge for UA Resulting for Rev; Glucose Urine UA Norm (Normal); Ketones Urine Negative (Negative); Leukocyte Esterase Urine Negative (Negative); Nitrate Urine Negative (Negative); Protein Urine Neg (Negative); Urine Appearance Clear (CLEAR); Urine Color Yellow (Yellow); Urobilinogen Urine Norm (Negative); pH Urine 6.5 (5-7)
[2024-07-04 21:00] VITALS: BP 120/74; PULSE 76; RESP 16; O2SAT 100
[2024-07-04 22:10] VITALS: BP 117/75; PULSE 68; RESP 16; O2SAT 99
== END 2024-07-04 22:09 | disposition home or self-care (01) ==
PROVIDERS: Emergency Medicine; Emergency Provider Physician Assistant; PCP Registered Nurse
DX: O26.892 Other specified pregnancy related conditions, second trimester (principal); Z3A.18 18 weeks gestation of pregnancy; Z87.891 Personal history of nicotine dependence
CPT/HCPCS: 36415; 76805; 80053; 81003; 83690; 85025; 99284

== ENCOUNTER → 2024-07-14 09:31 | Outpatient (BNVA) | payer MEDICAID, SELFPAY ==
[2023-10-05 15:55] VITALS: BP 115/60; BMI 25.7
== END ==
PROVIDERS: PCP Registered Nurse; Visit Provider Nurse Practitioner Women's Health
DX: O26.892 Other specified pregnancy related conditions, second trimester (principal); Z3A.20 20 weeks gestation of pregnancy
CPT/HCPCS: 76805

== ENCOUNTER → 2024-07-25 08:04 | Outpatient (BNVA) | payer OTHER, SELFPAY ==
[2023-10-05 15:55] VITALS: BP 115/60; BMI 25.7
== END ==
PROVIDERS: PCP Registered Nurse; Visit Provider Obstetrics & Gynecology
DX: Z34.80 Encounter for supervision of other normal pregnancy, unspecified trimester (principal)
CPT/HCPCS: 81000; 87086

== ENCOUNTER 2024-08-02 12:32 | Outpatient (CLI) | payer MEDICAID, SELFPAY ==
[2023-10-05 15:55] VITALS: BP 115/60; BMI 25.7
[2024-08-02 12:32] VITALS: BMI 28.8
[2024-08-02 12:48] VITALS: BP 114/68; PULSE 117; TEMP 36.1
[2024-08-02 13:05] VITALS: BP 110/66; PULSE 102
[2024-08-02 13:20] VITALS: BP 110/68; PULSE 108
[2024-08-02 13:28] VITALS: TEMP 36.1
== END 2024-08-02 13:30 | disposition home or self-care (01) ==
LOC: OPOB 12:36 → OBGYN 12:37
PROVIDERS: PCP Registered Nurse; Visit Provider Obstetrics & Gynecology
DX: O26.899 Other specified pregnancy related conditions, unspecified trimester (principal); Z3A.00 Weeks of gestation of pregnancy not specified; R10.9 Unspecified abdominal pain
CPT/HCPCS: 81000; 87086; 99211

== ENCOUNTER → 2024-08-10 15:05 | Outpatient (BNVA) | payer MEDICAID, SELFPAY ==
[2023-10-05 15:55] VITALS: BP 115/60; BMI 25.7
== END ==
PROVIDERS: PCP Registered Nurse; Visit Provider Obstetrics & Gynecology
DX: Z34.80 Encounter for supervision of other normal pregnancy, unspecified trimester (principal)
CPT/HCPCS: 81000

== ENCOUNTER → 2024-08-23 14:45 | Outpatient (BNVA) | payer OTHER, SELFPAY ==
[2023-10-05 15:55] VITALS: BP 115/60; BMI 25.7
== END ==
PROVIDERS: PCP Registered Nurse; Visit Provider Nurse Practitioner Women's Health
DX: R00.2 Palpitations (principal); Z34.80 Encounter for supervision of other normal pregnancy, unspecified trimester
CPT/HCPCS: 80053; 82950; 84315; 84439; 84443; 85025

== ENCOUNTER 2024-08-26 11:34 | Outpatient (CLI) | payer OTHER, SELFPAY ==
[2023-10-05 15:55] VITALS: BP 115/60; BMI 25.7
[2024-08-26 11:55] VITALS: BMI 30.4
[2024-08-26 11:57] VITALS: BP 120/86; PULSE 93
[2024-08-26 12:20] VITALS: RESP 16
[2024-08-26 12:34] LABS: Bilirubin Urine Negative (Negative); Blood Urine Negative (Negative); Glucose Urine UA Negative (Normal); Ketones Urine Negative (Negative); Leukocyte Esterase Urine 2+ (Negative); Nitrate Urine Negative (Negative); Protein Urine Trace (Negative); Urine Appearance Cloudy (CLEAR); Urine Color Yellow (Yellow); pH Urine 6.5 (5-7)
[2024-08-26 12:39] LABS: Bacteria Urine 4+ /hpf; Hyaline Casts Urine 2.46 /lpf; RBC Urine 0-2 /hpf (0-2); WBC Urine 21-50 /hpf (0-5)
[2024-08-26 12:42] VITALS: BP 117/72; PULSE 79
[2024-08-26 12:44] LABS: Nitrazine Paper, PH Negative
[2024-08-26 13:00] VITALS: BP 117/72; PULSE 79; RESP 16
--- NOTE | 2024-08-26 13:00 | PC.NURSE ---
Prescription called to [facility] at this time.
[2024-08-27 11:20] LABS: Chlamydia Trachomatis NOT DETECTED; Neisseria Gonorrhea NOT DETECTED
== END 2024-08-26 13:00 | disposition home or self-care (01) ==
LOC: OPOB 11:48 → OBGYN 11:50
PROVIDERS: PCP Registered Nurse; Visit Provider Obstetrics & Gynecology
DX: O26.899 Other specified pregnancy related conditions, unspecified trimester (principal); Z3A.00 Weeks of gestation of pregnancy not specified; N89.8 Other specified noninflammatory disorders of vagina
CPT/HCPCS: 81001; 83986; 87086; 87491; 87591; 99211

== ENCOUNTER 2024-09-19 20:15 | Outpatient (CLI) | payer OTHER, SELFPAY ==
[2023-10-05 15:55] VITALS: BP 115/60; BMI 25.7
[2024-09-19] VITALS (9 sets, daily range): BP systolic 94–120; BP diastolic 50–70; PULSE 79–93; RESP 17; TEMP 36.4; O2SAT 98; BMI 30.2
[2024-09-19 20:46] LABS: Bilirubin Urine Negative (Negative); Blood Urine Negative (Negative); Glucose Urine UA Negative (Normal); Ketones Urine 4+ (Negative); Leukocyte Esterase Urine Negative (Negative); Nitrate Urine Negative (Negative); Protein Urine Negative (Negative); Specific Gravity, Urine 1.015 (1.005-1.030); Urine Appearance Clear (CLEAR); Urine Color Yellow (Yellow); pH Urine 6.5 (5-7)
[2024-09-19 20:51] LABS: Add Urine Microscopic? YES; Bacteria Urine Trace /hpf; Hyaline Casts Urine 2.05 /lpf; RBC Urine 0-2 /hpf (0-2); Squamous Epithelial Cell Urine 0-5 /hpf (0-5); WBC Urine 0-5 /hpf (0-5)
[2024-09-19] MEDS: lactated ringers 1,000 ML 999 ML IV (22:00)
[2024-09-19] MEDS: ondansetron 2 mg/ML SDV 2 mL 4 MG IVP (22:00)
== END 2024-09-19 23:15 | disposition home or self-care (01) ==
LOC: OPOB 20:16 → OBGYN 20:17
PROVIDERS: PCP Registered Nurse; Visit Provider Obstetrics & Gynecology
DX: O26.899 Other specified pregnancy related conditions, unspecified trimester (principal); Z3A.00 Weeks of gestation of pregnancy not specified; R11.2 Nausea with vomiting, unspecified
CPT/HCPCS: 59025; 81001; 99211; J2405; J7120

== ENCOUNTER 2024-10-14 20:01 | Outpatient (CLI) | payer OTHER, SELFPAY ==
[2023-10-05 15:55] VITALS: BP 115/60; BMI 25.7
[2024-10-14 20:01] VITALS: BMI 31.4
[2024-10-14 20:17] VITALS: BP 109/60; PULSE 88
[2024-10-14 20:49] LABS: Nitrazine Paper, PH Negative
[2024-10-14 21:26] VITALS: BP 112/66; PULSE 96; O2SAT 98
[2024-10-14 21:27] VITALS: TEMP 36.2
[2024-10-14 21:30] VITALS: BP 112/66; PULSE 90; RESP 16; TEMP 36.2; O2SAT 99
== END 2024-10-14 21:33 | disposition home or self-care (01) ==
LOC: OPOB 20:02 → OBGYN 20:04
PROVIDERS: PCP Registered Nurse; Visit Provider Family Medicine
DX: O26.899 Other specified pregnancy related conditions, unspecified trimester (principal); Z3A.00 Weeks of gestation of pregnancy not specified; N89.8 Other specified noninflammatory disorders of vagina
CPT/HCPCS: 59025; 83986; 84112; 99211

== ENCOUNTER 2024-11-14 16:44 | Outpatient (CLI) | payer OTHER, SELFPAY ==
[2023-10-05 15:55] VITALS: BP 115/60; BMI 25.7
[2024-11-14 16:52] VITALS: BP 122/87; PULSE 85
[2024-11-14 16:59] VITALS: RESP 18
[2024-11-14 17:03] LABS: Glucose Urine UA Negative (Normal); Nitrate Urine Negative (Negative); Specific Gravity, Urine 1.012 (1.005-1.030)
[2024-11-14 17:07] VITALS: BP 125/74; PULSE 93
[2024-11-14 17:13] LABS: Add Urine Microscopic? YES; UA Manual Slide Review YES
[2024-11-14 17:21] VITALS: BP 126/73; PULSE 88
[2024-11-14 17:26] VITALS: RESP 18
== END 2024-11-14 17:32 | disposition home or self-care (01) ==
LOC: OPOB 16:46 → OBGYN 16:48
PROVIDERS: PCP Registered Nurse; Visit Provider Family Medicine
DX: O36.8190 Decreased fetal movements, unspecified trimester, not applicable or unspecified (principal); Z3A.00 Weeks of gestation of pregnancy not specified
CPT/HCPCS: 59025; 81001; 87086; 99211